=== PATIENT | female | born 1995 | race Hispanic/Latino ===

== ENCOUNTER 2017-06-18 18:04 | Inpatient (IN) | payer BC, OTHER ==
[~2017-06-18] VITALS: Ht 157.5 cm; Wt 96.2 kg
[2017-06-18] MEDS ORDERED: LACTATED RINGERS 1000ML 1,000 ML IV PRN (18:34)
[2017-06-18] MEDS ORDERED: NALOXONE HCL 0.4 MG/1 ML ML IV PRN (18:45)
[2017-06-18] MEDS ORDERED: LACTATED RINGERS 500 ML 500 ML IV PRN (18:45)
[2017-06-18] MEDS ORDERED: BUTORPHANOL TARTRATE 2 MG/ML IVP PRN (18:45)
[2017-06-18] MEDS ORDERED: EPHEDRINE SULFATE 50 MG/ML AMPULE IVP PRN (18:45)
[2017-06-18] MEDS ORDERED: ROPIVACAINE 0.2%200ML EPIDURAL 200 ML EP SCH (18:45)
[2017-06-18 19:17] LABS: BILIRUBIN,URINE Negative (NEGATIVE); COLOR,URINE Yellow (YELLOW); GLUCOSE, URINE (UA) Negative (NEGATIVE); KETONES,URINE Negative (NEGATIVE); LEUKOCYTE ESTERASE ,URINE Trace (NEGATIVE); NITRATE,URINE Negative (NEGATIVE); OCCULT BLOOD,URINE Negative (NEGATIVE); PH,URINE 6.5 (5.0-8.0); PROTEIN,URINE POS 1+ (NEGATIVE); UROBILINOGEN,URINE 0.2 mg/dL (0.2-1.0)
[2017-06-18 19:20] LABS: APPEARANCE,URINE SLIGHTLY CLOUDY (CLEAR); HEMATOCRIT 33.1 % (36-48); MEAN CORPUSCULAR HEMOGLOBIN 30.2 pg (27.0-33.0); MEAN CORPUSCULAR HGB CONC 33.2 g/dL (32.0-36.0); PLATELET COUNT (AUTO) 199 K/uL (130-400); RED BLOOD CELL COUNT(AUTO) 3.64 MIL/uL (4.00-5.50); WHITE BLOOD COUNT (AUTO) 12.3 K/uL (4.8-10.8)
[2017-06-18 19:31] LABS: BACTERIA,URINE Few /HPF (None Seen); RBC,URINE 0-1 /HPF (0-1); SQUAMOUS EPITHELIAL CELL,UR Few /LPF (0-2)
[2017-06-18 19:32] LABS: MUCUS,URINE Rare LPF (None Seen)
[2017-06-18] MEDS: MISOPROSTOL 100 MCG TABLET VG SCH (20:21)
[2017-06-19] MEDS ORDERED: OXYTOCIN 10 USP UNITS/ML 20 UNIT in LACTATED RINGERS 1000ML 1,000 ML IV SCH (07:00)
[2017-06-19] MEDS ORDERED: OXYTOCIN 10 USP UNITS/ML ONE ×3 (07:57→14:35)
[2017-06-19] MEDS ORDERED: CEFAZOLIN SODIUM 1 GM VIAL IVP PRN (09:00)
[2017-06-19] MEDS ORDERED: CALDOLOR 800MG+NS 250ML 250 ML IV PRN (09:00)
[2017-06-19] MEDS ORDERED: LIDOCAINE HCL-MPF 2% 10ML AMP IJ ONE ×2 (10:15→11:13)
[2017-06-19] MEDS ORDERED: FENTANYL CITRATE PF 50 MCG/1 ML 2ML VIAL ONE (10:19)
[2017-06-19] MEDS ORDERED: CEFAZOLIN SODIUM 1 GM VIAL IVP ONE (10:20)
[2017-06-19] MEDS ORDERED: PROPOFOL 10 MG/ML 20ML VIAL IV ONE (10:35)
[2017-06-19] MEDS ORDERED: OXYTOCIN-LR 20 UNITS/1000 ML 1,000 ML IV PRN (10:53)
[2017-06-19] MEDS ORDERED: BISACODYL 10 MG SUPP.RECT RC PRN (11:00)
[2017-06-19] MEDS ORDERED: MEPERIDINE-PF 75 MG/ML SYG IM PRN (11:00)
[2017-06-19] MEDS: DIPH,PERTUSS(ACELL),TET VAC/PF 0.5 ML VIAL IM SCH (11:00)
[2017-06-19] MEDS ORDERED: LANOLIN 30GM OINTMENT TP PRN (11:00)
[2017-06-19] MEDS ORDERED: DIPHENHYDRAMINE HCL 25 MG CAPSULE PO PRN (11:00)
[2017-06-19] MEDS ORDERED: PROMETHAZINE HCL 25 MG/ML 1ML AMPULE IM PRN (11:00)
[2017-06-19] MEDS ORDERED: ACETAMINOPHEN EXTRA STRENGTH 500 MG TABLET PO PRN (11:00)
[2017-06-19] MEDS ORDERED: SODIUM CHLORIDE 0.9% 10 ML VIAL IVP PRN (11:00)
[2017-06-19] MEDS ORDERED: HYDROCODONE/ACETAMINOPHEN 5/325 MG TAB PO PRN (11:00)
[2017-06-19] MEDS ORDERED: DEXTROSE 5 %-0.45 % NACL 1,000 ML IV PRN (11:00)
[2017-06-19] MEDS ORDERED: DURAMORPH PF1 MG/ML 10ML AMP IV ONE (11:09)
[2017-06-19] MEDS ORDERED: SODIUM CHLORIDE 0.9% 10 ML VIAL ONE (11:13)
[2017-06-19 12:36] VITALS: BP 134/77
[2017-06-19 16:41] VITALS: BP 128/73
[2017-06-19] MEDS: CALDOLOR 800MG+NS 250ML 250 ML IV SCH (18:36)
[2017-06-19] MEDS: IBUPROFEN 800 MG TAB PO SCH (19:00)
[2017-06-19 19:23] VITALS: BP 132/76
[2017-06-19] MEDS: DOCUSATE SODIUM 100 MG CAP PO SCH (20:44)
[2017-06-19] MEDS: SIMETHICONE 80 MG TAB.CHEW PO PRN (20:44)
[2017-06-19 22:50] VITALS: BP 122/61
[2017-06-20] MEDS: MISOPROSTOL 100 MCG TABLET VG SCH ×3 (00:45→18:45)
[2017-06-20] MEDS: CALDOLOR 800MG+NS 250ML 250 ML IV SCH (02:55)
[2017-06-20] MEDS: IBUPROFEN 800 MG TAB PO SCH ×3 (03:00→18:17)
[2017-06-20 03:48] VITALS: BP 133/73
[2017-06-20 06:53] LABS: HEMATOCRIT 27.5 % (36-48); MEAN CORPUSCULAR HEMOGLOBIN 32.4 pg (27.0-33.0); MEAN CORPUSCULAR HGB CONC 35.6 g/dL (32.0-36.0); PLATELET COUNT (AUTO) 132 K/uL (130-400); RED BLOOD CELL COUNT(AUTO) 3.03 MIL/uL (4.00-5.50); RED CELL DISTRIBUTION WIDTH 13.9 % (11.0-15.5); WHITE BLOOD COUNT (AUTO) 10.7 K/uL (4.8-10.8)
[2017-06-20 07:22] VITALS: BP 129/72
[2017-06-20 07:23] LABS: HEPATITIS Bs ANTIGEN SCREEN P Negative (Negative)
[2017-06-20] MEDS: SIMETHICONE 80 MG TAB.CHEW PO PRN ×4 (08:28→21:20)
[2017-06-20] MEDS: DOCUSATE SODIUM 100 MG CAP PO SCH ×2 (08:28→21:21)
[2017-06-20] MEDS: ACETAMINOPHEN-CODEINE 300/30MG TAB PO PRN (08:29)
[2017-06-20] MEDS: DIPH,PERTUSS(ACELL),TET VAC/PF 0.5 ML VIAL IM SCH (11:00)
[2017-06-20] MEDS: MEASLES/MUMPS/RUBELLA VACCINE, LIVE 0.5 ML/VIAL SQ SCH (11:00)
[2017-06-20 11:08] VITALS: BP 136/79
[2017-06-20 15:16] VITALS: BP 133/74
[2017-06-20] MEDS: LIDOCAINE 5% TOPICAL PATCH TP SCH (15:18)
[2017-06-20 19:24] VITALS: BP 122/66
[2017-06-20 23:11] VITALS: BP 130/78
[2017-06-21] MEDS: MISOPROSTOL 100 MCG TABLET VG SCH ×3 (00:45→12:45)
[2017-06-21] MEDS: IBUPROFEN 800 MG TAB PO SCH ×2 (02:56→11:17)
[2017-06-21 03:26] VITALS: BP 131/75
[2017-06-21] MEDS: ACETAMINOPHEN-CODEINE 300/30MG TAB PO PRN ×2 (03:57→09:11)
[2017-06-21 07:21] VITALS: BP 118/77
[2017-06-21] MEDS: DOCUSATE SODIUM 100 MG CAP PO SCH (09:09)
[2017-06-21] MEDS: LIDOCAINE 5% TOPICAL PATCH TP SCH (09:09)
[2017-06-21] MEDS: SIMETHICONE 80 MG TAB.CHEW PO PRN (09:10)
[2017-06-21] MEDS: DIPH,PERTUSS(ACELL),TET VAC/PF 0.5 ML VIAL IM SCH (11:00)
[2017-06-21] MEDS: MEASLES/MUMPS/RUBELLA VACCINE, LIVE 0.5 ML/VIAL SQ SCH (11:00)
[2017-06-21 11:11] VITALS: BP 134/95
== END 2017-06-21 14:30 | disposition home or self-care (01) | DRG 766 ==
LOC: LDH 18:04 → WSH 06-19 12:32
PROVIDERS: ADMIT Obstetrics & Gynecology; ATTEND Obstetrics & Gynecology
PROC: 3E0P7VZ Introduction of Hormone into Female Reproductive, Via Natural or Artificial Opening (ICD-10-PCS; 2017-06-19)
PROC: 10D00Z1 Extraction of Products of Conception, Low, Open Approach (ICD-10-PCS; principal; 2017-06-19 10:00)
DX: O77.9 Labor and delivery complicated by fetal stress, unspecified (principal); Z28.21 Immunization not carried out because of patient refusal; Z3A.39 39 weeks gestation of pregnancy; Z37.0 Single live birth
CPT/HCPCS: 36415; 59510; 81001; 85027; 86592; 86850; 86900; 86901; 87340; A4314; A4344; A4606; J0595; J0690; J1741; J2274; J2590; J2704; J3010; J3490; J7120